=== PATIENT | male | born 1965 | race Caucasian/White ===

== ENCOUNTER → 2019-03-04 | Outpatient (CLI) | payer OTHER, SELFPAY ==
[2018-10-11 08:58] VITALS: BMI 35.9
[2019-03-04 08:22] LABS: ALB/GLOB Ratio 1.1 RATIO (0.9-2.4); AST(SGOT) 23 U/L (15-37); Alanine Aminotransfer ALT/SGPT 40 U/L (16-61); Albumin, Serum 3.7 g/dL (3.2-5.0); Alkaline Phosphatase 97 U/L (45-117); Anion Gap 7 (5-15); BUN 20 mg/dL (7-18); BUN/Creat Ratio 16.7 RATIO (10-20); Calcium,Total 8.4 mg/dL (8.5-10.1); Chloride 107 mmol/L (98-107); Cholesterol 213 mg/dL (200); EST Glomerular Filtration Rate 67 mL/min (>60); Est Glom Filt Rate - Afr Amer 81 mL/min (>60); Globulin 3.5 g/dL (2.2-4.2); Glucose 97 mg/dL (74-106); High Density Lipoprotein 39 mg/dL; PSA,Total - Annual Screen 0.48 ng/mL (0.00-4.00); Potassium 3.9 mmol/L (3.5-5.1); Protein, Total 7.2 g/dL (6.4-8.2); Sodium Level 141 mmol/L (136-145); Triglycerides 321 mg/dL; Very Low Density Lipoprotein 64 mg/dL (5-40)
== END | disposition home or self-care (01) ==
PROVIDERS: Family Provider Family Medicine; PCP Family Medicine; Referring Provider Family Medicine; Visit Provider Family Medicine
DX: Z13.1 Encounter for screening for diabetes mellitus (principal); Z12.5 Encounter for screening for malignant neoplasm of prostate; Z13.220 Encounter for screening for lipoid disorders
CPT/HCPCS: 36415; 80053; 80061; 84153; G0103

== ENCOUNTER 2019-05-14 08:32 | Day surgery (SDC) | payer OTHER, SELFPAY ==
[2018-10-11 08:58] VITALS: BMI 35.9
[2019-05-14 08:53] VITALS: BP 122/76; PULSE 69; RESP 16; TEMP 36.5; O2SAT 99; BMI 35.7
--- NOTE | 2019-05-14 09:45 | COLBX_PTH ---
PATIENT: LYNDA GUTIERREZ LOC: EN U#:[id number] AGE/SX: 53/M ROOM: RE05/14/[address]: Dr. Gustabo Hughes MD : 1965 BED: DIS: 05/14/2019 SPEC #: [id number] RECD: 05/14/19 11:13 STATUS: LAVERNE NEYMAR #: [id number] RENY: 05/14/19 09:[address]: Gustabo Hughes DEPT: SURGICAL PATHOLOGY RECD BY: Hugh Mcnally ENTERED: 05/14/19 14:23 SP TYPE: COLON BX OTHR DR: Dr. Tate Garcia MD Tissues: Sigmoid colon biopsy Procedures: Surgery Specimen Level IV HEADER OPERATION: Colonoscopy - open access (MAC) PRE-OP DIAGNOSIS: Screening TISSUE SUBMITTED: Sigmoid colon polyp MICROSCOPIC DIAGNOSIS Sigmoid colon polyp, biopsy: Tubular adenoma. AM:stephanie 05/15/19 MICROSCOPIC DESCRIPTION Slides are reviewed. GROSS DESCRIPTION Received in fixative is one container labeled with the patient's name and designated sigmoid colon polyp. The specimen consists of a bates-pink polyp measuring 0.8 x 0.6 x 0.3 cm. The specimen is totally submitted in one cassette. / SJ:stephanie 05/14/19 TC:5 CPT: 20424
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
[2019-05-14 10:21] VITALS: BP 108/75; BP 122/76; PULSE 48; RESP 16; TEMP 36.3; O2SAT 97
[2019-05-14 10:25] VITALS: BP 110/75; BP 122/76; PULSE 48; RESP 16; O2SAT 94
--- NOTE | 2019-05-14 10:25 | OP.ENDO_ITS ---
05/14/2019 Tate Garcia Re : Colonoscopy procedure for Tristin Garcia This procedure was performed on Tuesday, May 14, 2019. My impressions and recommendations are as follows: Impressions : - One polyp in the sigmoid colon, removed with a hot snare. Resected and retrieved. - The examination was otherwise normal on direct and retroflexion views. Recommendations : - Discharge patient to home. - Resume previous diet. - Continue present medications. - Physician's office will call you with pathology results and recommendations for when to repeat colonoscopy. - Repeat colonoscopy date to be determined after pending pathology results are reviewed for surveillance. My findings are described in the full procedure note, which is enclosed. If I can be of further assistance, please feel free to contact me at Doctor phone number(s): , Work: . Sincerely, Gustabo Hughes MD 05/14/2019 10:24:52 AM This report has been signed electronically.
[2019-05-14 10:30] VITALS: BP 113/80; BP 122/76; PULSE 50; RESP 16; O2SAT 95
[2019-05-14 10:35] VITALS: BP 122/76; BP 126/95; PULSE 47; RESP 16; TEMP 36.1; O2SAT 98
[2019-05-14 10:56] VITALS: BP 122/76
== END 2019-05-14 11:06 | disposition home or self-care (01) ==
LOC: EN 08:32 → AC 08:36
PROVIDERS: Family Provider Family Medicine; PCP Family Medicine; Referring Provider Family Medicine; Visit Provider Surgery
PROC: 0DJD8ZZ Inspection of Lower Intestinal Tract, Via Natural or Artificial Opening Endoscopic (ICD-10-PCS; CPT 45378; principal; 2019-05-14 09:40)
DX: Z12.11 Encounter for screening for malignant neoplasm of colon (principal); D12.5 Benign neoplasm of sigmoid colon; Z80.0 Family history of malignant neoplasm of digestive organs; F17.220 Nicotine dependence, chewing tobacco, uncomplicated
CPT/HCPCS: 45380; 88305; J7120

== ENCOUNTER 2020-06-06 10:51 | Emergency (ER) | payer OTHER, SELFPAY ==
[2020-06-06 10:38] VITALS: BMI 35.7
[2020-06-06 10:52] VITALS: BP 158/89; PULSE 74; RESP 16; TEMP 36.4; O2SAT 97; BMI 34.2
[2020-06-06] MEDS: Diphth,Pertuss(Acell),Tet Vac 0.5 ML Vial IM (11:13)
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
[2020-06-06 11:58] VITALS: BP 155/93; PULSE 62; RESP 17; O2SAT 97
--- NOTE | 2020-06-06 12:00 | ED.RN ---
DISCHARGE INSTRUCTIONS GIVEN TO AND REVIEWED WITH PATIENT, PATIENT DENIES QUESTIONS OR CONCERNS AND VOICES UNDERSTANDING OF DISCHARGE INSTRUCTIONS. PT AMBULATES OUT OF ROOM WITHOUT DIFFICULTY.
== END 2020-06-06 12:01 | disposition home or self-care (01) ==
LOC: ED 11:58
PROVIDERS: Emergency Provider Emergency Medicine; PCP Family Medicine
DX: S01.312A Laceration without foreign body of left ear, initial encounter (principal); F17.200 Nicotine dependence, unspecified, uncomplicated; X58.XXXA Exposure to other specified factors, initial encounter
CPT/HCPCS: 12011; 90471; 90715; 99283

== ENCOUNTER 2021-06-24 22:10 | Inpatient (IN) | payer BC, SELFPAY ==
[2021-06-24 22:11] VITALS: BP 140/72; PULSE 83; RESP 18; TEMP 37.8; O2SAT 97; BMI 35.2
--- NOTE | 2021-06-24 22:16 | RAD_ITS ---
STUDY: X-RAY CHEST REASON FOR EXAM: Male, 55 years old. sob TECHNIQUE: PA and lateral views of the chest. COMPARISON: None. FINDINGS: Patchy airspace disease throughout the lungs compatible with COVID. No consolidation or effusion. There is no demonstrated pleural abnormality. Normal size heart. Normal mediastinum and yogi. Normal visualized pulmonary arteries. Normal visualized aortic arch and descending thoracic aorta. Normal visualized thoracic spine. Normal visualized ribs, clavicles, and shoulders. There is no demonstrated abnormality of the visualized soft tissue structures of the upper abdomen. RAD/Chest PA and Lateral IMPRESSION: Findings as above compatible with COVID Electronically Signed: Michele Mendiola DO at 22:31 EDT Tel , Service support ,
[2021-06-24 23:14] VITALS: BP 140/72; PULSE 83; RESP 18; TEMP 37.8; O2SAT 97
[2021-06-24 23:16] VITALS: O2SAT 97
--- NOTE | 2021-06-24 23:25 | EKG12_ITS ---
Test Reason : SOB Blood Pressure : / mmHG Vent. Rate : 062 BPM Atrial Rate : 062 BPM P-R Int : 152 ms QRS Dur : 096 ms QT Int : 402 ms P-R-T Axes : 044 -13 039 degrees QTc Int : 408 ms Normal sinus rhythm Normal ECG Confirmed by CHAPO MOYA MD ([id number]), editor greeting card JOHN ELDRIDGE ([id number]) on 06/28/2021 1:07:05 PM Referred By: BB Confirmed By:CHAPO MOYA MD
[2021-06-24 23:26] VITALS: O2SAT 88
--- NOTE | 2021-06-24 23:28 | ED.VIS.DYS ---
HPI History of Present Illness Chief Complaint: Shortness of Breath Informant: patient and spouse/S.O. Narrative Narrative: Patient started having sinus congestion at the end of the week last week, about 6 days ago, was prescribed a Z-Jose E over the phone by nurse practitioner because of a history of sinus infections in the past. About 2 or 3 days ago he started having fevers, chills, body aches, minimal coughing, tonight feeling short of breath on occasion, malaise, fevers and chills, so brought in. No known contact with Covid but they were in with a lot of people recently in a /calling hours. Patient is healthy with no known medical problems. He denies any chest discomfort, diarrhea, abdominal pain. PFSH [facility] Medical History Arthritis Chewing tobacco use Segmental and somatic dysfunction of lumbar region Segmental and somatic dysfunction of pelvic region Segmental and somatic dysfunction of thoracic region Home Medications azithromycin 250 mg PO BID 06/24/21 [History Last Taken 06/24/21] Allergy/AdvReac Type Severity Reaction Status Date / Time No Known Allergies Allergy Verified 06/24/21 22:14 Surgical History S/P hernia repair S/P knee surgery Social History (Updated 06/25/21 @ 01:08 by Patricia Nguyen [employer]) Smoking Status: Never smoker Smokeless tobacco user: chewing tobacco alcohol intake: current alcohol intake frequency: a few times a week Alcohol type: beer and wine substance use type: does not use what type of physical activity do you participate in: walking frequency: 1-2 times per week ROS ROS ED Constitutional Constitutional ED: Reports body ache(s), chills, fatigue and fever(s) Eyes Eyes: Denies change in vision or diplopia ENT ENT ED: Reports headache(s) and nasal congestion; Denies rhinorrhea or sore throat Cardiovascular Cardiovascular: Denies chest pain or palpitations Respiratory/Chest Respiratory/Chest: Reports cough and dyspnea Gastrointestinal Gastrointestinal: Denies abdominal pain, diarrhea, nausea or vomiting Genitourinary Genitourinary ED: Denies dysuria or hematuria Musculoskeletal Musculoskeletal: Reports myalgias; Denies back pain or neck pain Integumentary Denies abscess or rash Neurologic Neurologic: Reports headache(s); Denies paresthesias or weakness Psychiatric Psychiatric: Denies anxiety or suicidal thoughts EXAM Physical Exam Const Vital Signs: 06/24/21 22:11 06/24/21 23:14 06/24/21 23:16 Temperature 100.1 F H 100.1 F H Temperature Source Temporal Temporal Pulse Rate 83 83 Respiratory Rate 18 18 Respiratory Effort Normal Non-Labored Respiratory Depth Normal Respiratory Pattern Normal Blood Pressure 140/72 H 140/72 H Blood Pressure Mean 94 94 Pulse Ox 97 97 Oxygen Delivery Method Room Air Room Air Room Air Oxygen Flow Rate (L/min) 06/24/21 23:43 06/25/21 00:00 06/25/21 00:11 Temperature 100.2 F H Temperature Source Temporal Pulse Rate 84 Respiratory Rate 15 Respiratory Effort Respiratory Depth Respiratory Pattern Blood Pressure 138/68 H Blood Pressure Mean 91 Pulse Ox 95 93 93 Oxygen Delivery Method Nasal Cannula Nasal Cannula Oxygen Flow Rate (L/min) 2 2 Positive well nourished and well developed Constitutional Narrative: Appears malaised, no distress. No respiratory distress. General Appearance ED: well developed and NAD HEENT Reports moist mucous membranes normocephalic and atraumatic Eyes PERRL and EOMs intact bilaterally Neck full ROM and supple Resp normal respiratory effort and clear to auscultation bilaterally Cardio regular rate, regular rhythm and no murmurs GI non-tender and non-distended Auscultation: normoactive bowel sounds Palpation: soft Back/Spine no CVA tenderness General Back: other FROM Extremity normal to inspection General Extremety ED: Negative for edema, pulses abnormal or tenderness General Extremity: Negative for edema or pulses abnormal Neuro oriented x3, CN's II-XII intact bilaterally and no sensory deficits noted Sensorium / Orientation: awake and alert Motor Exam: strength 5/5 throughout Skin no rashes or lesions noted and no wounds MDM MDM MDM Narrative Medical decision making narrative: During exam, patient mostly with pulse ox 90-95% on room air. He sat at 88% for around 30 seconds. states he probably has undiagnosed sleep apnea, as he often snores during sleep and wakes up suddenly after apneic. She states that at home prior to arrival, without pulse oximetry, he was feeling very poorly and a little dyspneic and had some perioral cyanotic appearance. This is a prompted her to bring him in. Given that this gentleman may be less than 1 week into this illness, has significant findings of Covid with a positive Covid test here tonight and bilateral patchy infiltrates that are already fairly significant, along with a pulse ox at 88% on room air, and went down as low as 85% according to the for period of time, I think you will benefit from admission and further treatment for moderate Covid pneumonia. Lab Data Attestation: I reviewed the patient's lab results. Labs: Laboratory Results - last 24 hr 06/24/21 06/24/21 06/24/21 23:40 23:40 23:40 WBC 3.8 L RBC 4.78 Hgb 15.0 Hct 44.3 MCV 92.7 MCH 31.4 MCHC 33.9 RDW Std Deviation 42.5 RDW Coeff of Lee 12.4 Plt Count 148 L MPV 10.3 Immature Gran % (Auto) 0.500 Neut % (Auto) 76.6 H Lymph % (Auto) 17.6 L Zavala % (Auto) 5.0 Eos % (Auto) 0.0 Baso % (Auto) 0.3 Absolute Neuts (auto) 2.9 Absolute Lymphs (auto) 0.67 L Nucleated RBC % 0 Sodium 135 L Potassium 3.8 Chloride 103 Carbon Dioxide 25.0 Anion Gap 7 BUN 14 Creatinine 1.08 Estim Creat Clear Calc 78.86 Est GFR (MDRD) Af Amer 91 Est GFR (MDRD) Non-Af 75 BUN/Creatinine Ratio 13.0 Glucose 113 H Lactic Acid Calcium 8.3 L Total Bilirubin 0.70 AST 46 H ALT 51 Alkaline Phosphatase 89 Troponin I High Sens 61 Total Protein 8.0 Albumin 3.7 Globulin 4.3 H Albumin/Globulin Ratio 0.9 Procalcitonin 0.08 06/24/21 23:40 WBC RBC Hgb Hct MCV MCH MCHC RDW Std Deviation RDW Coeff of Lee Plt Count MPV Immature Gran % (Auto) Neut % (Auto) Lymph % (Auto) Zavala % (Auto) Eos % (Auto) Baso % (Auto) Absolute Neuts (auto) Absolute Lymphs (auto) Nucleated RBC % Sodium Potassium Chloride Carbon Dioxide Anion Gap BUN Creatinine Estim Creat Clear Calc Est GFR (MDRD) Af Amer Est GFR (MDRD) Non-Af BUN/Creatinine Ratio Glucose Lactic Acid 0.8 Calcium Total Bilirubin AST ALT Alkaline Phosphatase Troponin I High Sens Total Protein Albumin Globulin Albumin/Globulin Ratio Procalcitonin Radiography Chest X-Ray - ED: 1 View, Read by ED Physician, Right Infiltrate and Left Infiltrate Diagnostic Testing: Radiology Impression Chest X-Ray 06/24/21 22:16 IMPRESSION: Findings as above compatible with COVID Electronically Signed: Michele Mendiola DO at 22:31 EDT Tel , Service support , EKG Initial EKG: Attestation: I personally reviewed and interpreted this EKG as follows: Interpretation: Sinus Rhythm and No Acute Injury Pattern Comments: Normal EKG Discharge Plan Dx/Rx/DC Orders Clinical Impression: Pneumonia due to COVID-19 virus, Hypoxemia Disposition Disposition: Acute Care Hospital [facility] Discharge Date/Time: 06/25/21 01:39
[2021-06-24 23:43] VITALS: O2SAT 95
[2021-06-24 23:47] LABS: Absolute Lymphocyte Count 0.67 X10^3/uL (0.83-4.51); Absolute Neutrophil Count 2.9 X10^3/uL (2.0-7.7); Basophil# 0.01 X10^3/uL; Basophil% 0.3 % (0-1); Hematocrit 44.3 % (40-54); Lymphocyte # 0.67 X10^3/ul (0.83-4.51); Lymphocyte % 17.6 % (19-41); Mean Corp Hgb Conc 33.9 g/dL (32-36); Mean Corpuscular Hgb 31.4 pg (27.0-32.0); Mean Corpuscular Volume 92.7 fL (80-94); Mean Platelet Vol. 10.3 fl (6.2-12.0); Monocyte# 0.19 X10^3/uL; NRBC Flagged by Analyzer 0 % (0-5); Neutrophil # 2.91 X10^3/uL (2.7-7.7); Neutrophil % 76.6 % (47-70); Platelet Count 148 K/mm3 (150-450); RBC Distribution Width CV 12.4 % (11.6-14.6); RBC Distribution Width SD 42.5 fl (35.1-43.9); Red Blood Count 4.78 M/mm3 (4.6-6.2); White Blood Count 3.8 K/mm3 (4.4-11.0)
[2021-06-25] VITALS (8 sets, daily range): BP systolic 120–156; BP diastolic 68–82; PULSE 55–84; RESP 15–18; TEMP 36.7–37.9; O2SAT 90–99; BMI 36.8
[2021-06-25 00:05] LABS: ALB/GLOB Ratio 0.9 RATIO (0.9-2.4); AST(SGOT) 46 U/L (15-37); Alanine Aminotransfer ALT/SGPT 51 U/L (16-61); Albumin, Serum 3.7 g/dL (3.2-5.0); Alkaline Phosphatase 89 U/L (45-117); Anion Gap 7 (5-15); BUN 14 mg/dL (7-18); Calcium,Total 8.3 mg/dL (8.5-10.1); Chloride 103 mmol/L (98-107); Creatinine, Serum 1.08 mg/dL (0.70-1.30); EST Glomerular Filtration Rate 75 mL/min (>60); Est Glom Filt Rate - Afr Amer 91 mL/min (>60); Estimated Creatinine Clearance 78.86 ml/min; Globulin 4.3 g/dL (2.2-4.2); Glucose 113 mg/dL (74-106); Potassium 3.8 mmol/L (3.5-5.1); Sodium Level 135 mmol/L (136-145); Troponin-I HS 61 pg/mL (3.0-78.0)
[2021-06-25 00:12] LABS: Lactic Acid 0.8 mmol/L (0.4-1.9)
[2021-06-25 00:16] LABS: Procalcitonin 0.08 ng/mL (0.00-0.09)
[2021-06-25] MEDS: dexAMETHasone 10 MG/ML Vial 6 MG IV ×2 (00:21→09:35)
[2021-06-25] MEDS: Acetaminophen 500 MG Tablet 1000 MG PO (00:21)
--- NOTE | 2021-06-25 01:05 | HP.PCM_ITS ---
Documented by User: Patricia Nguyen NP-C 06/25/21 01:14 HPI - General General Date of Admission: 06/25/21 Date of Service: 06/25/21 Chief Complaint: Shortness of breath HPI Narrative LYNDA GUTIERREZ, is a 55 M who presents with complaints of shortness of breath. Patient states that he has been having sinus congestion for the past week and did a telehealth visit for which he received a Z-Jose E. Approximately 3 days ago he began to have fevers, chills, body aches. Today he began to feel lethargic and short of breath more so with exertion. Patient denies known contact with Covid patient however he has been in multiple large groups over the past week for funerals and calling hours. Patient denies any medical history. Patient denies chest pain, nausea, vomiting, abdominal pain, diarrhea, constipation. [facility] Medical History Arthritis Segmental and somatic dysfunction of lumbar region Segmental and somatic dysfunction of pelvic region Segmental and somatic dysfunction of thoracic region Home Medications azithromycin 250 mg PO BID 06/24/21 [History Last Taken Unknown] Allergy/AdvReac Type Severity Reaction Status Date / Time No Known Allergies Allergy Verified 06/24/21 22:14 Surgical History S/P hernia repair S/P knee surgery Social History (Updated 06/25/21 @ 01:08 by Patricia Nguyen NP-C) Smoking Status: Never smoker Smokeless tobacco user: chewing tobacco alcohol intake: current alcohol intake frequency: a few times a week Alcohol type: beer and wine substance use type: does not use what type of physical activity do you participate in: walking frequency: 1-2 times per week ROS Constitutional Constitutional: Reports chills, fever(s) and malaise; Denies anorexia or weakne ss Cardiovascular Cardiovascular: Denies chest pain, edema or palpitations Respiratory/Chest Respiratory/Chest: Reports shortness of breath at rest and shortness of breath with exertion; Denies cough or wheezing Gastrointestinal Gastrointestinal: Denies abdominal pain, constipation, diarrhea, nausea or vomiting Genitourinary Genitourinary: Denies dysuria Musculoskeletal Musculoskeletal: Reports joint pain Integumentary Integumentary: Denies dry skin Neurologic Neurologic: Denies abnormal gait, abnormal speech, confusion, dizziness or focal weakness Psychiatric Psychiatric: Denies anxiety or depression Endocrine Endocrinology: Denies change in body appearance Hematologic/Lymphatic Hematologic/Lymphatic: Denies easy bleeding or easy bruising Vital Signs Vital Signs Vital Signs: 06/24/21 22:11 06/24/21 23:14 06/24/21 23:16 Temperature 100.1 F H 100.1 F H Temperature Source Temporal Temporal Pulse Rate 83 83 Respiratory Rate 18 18 Respiratory Effort Normal Non-Labored Respiratory Depth Normal Respiratory Pattern Normal Blood Pressure 140/72 H 140/72 H Blood Pressure Mean 94 94 Pulse Ox 97 97 Oxygen Delivery Method Room Air Room Air Room Air Oxygen Flow Rate (L/min) 06/24/21 23:43 06/25/21 00:00 06/25/21 00:11 Temperature 100.2 F H Temperature Source Temporal Pulse Rate 84 Respiratory Rate 15 Respiratory Effort Respiratory Depth Respiratory Pattern Blood Pressure 138/68 H Blood Pressure Mean 91 Pulse Ox 95 93 93 Oxygen Delivery Method Nasal Cannula Nasal Cannula Oxygen Flow Rate (L/min) 2 2 Weight Weight: 245 lb Body Mass Index (BMI) 35.2 Physical Exam Const alert and oriented x3 General Appearance: cooperative HEENT normocephalic and head/scalp atraumatic Eyes conjunctivae normal and no scleral icterus Neck supple and no JVD General: trachea midline Resp normal respiratory effort and normal air movement Auscultation: wheezes scattered wheezes Cardio regular rate, regular rhythm, S1 normal heart sound, S2 normal heart sound and peripheral pulses 2+ throughout GI normal to inspection, nondistended, normoactive bowel sounds, soft to palpation and non-tender Extremity normal capillary refill and no clubbing, cyanosis or edema General Extremity: no tenderness to palpation of joints or extremities Skin General Skin Exam: no breakdown and turgor normal Lesions: no lesions Rashes: no rashes Neuro no focal motor deficits and no sensory deficits noted Speech: speech normal Motor Exam: Negative for general weakness Psych thought process normal, cooperative and affect normal Appearance: appropriate Results Lab / Micro Data Result Diagrams: 06/24/21 23:40 06/24/21 23:40 Labs: Laboratory Results - last 24 hr 06/24/21 23:40: Procalcitonin 0.08 06/24/21 23:40: WBC 3.8 L, RBC 4.78, Hgb 15.0, Hct 44.3, MCV 92.7, MCH 31.4, MCHC 33.9, RDW Std Deviation 42.5, RDW Coeff of Lee 12.4, Plt Count 148 L, MPV 10.3, Immature Gran % (Auto) 0.500, Neut % (Auto) 76.6 H, Lymph % (Auto) 17.6 L, [place] % (Auto) 5.0, Eos % (Auto) 0.0, Baso % (Auto) 0.3, Absolute Neuts (auto) 2.9, Absolute Lymphs (auto) 0.67 L, Nucleated RBC % 0 06/24/21 23:40: Sodium 135 L, Potassium 3.8, Chloride 103, Carbon Dioxide 25.0, Anion Gap 7, BUN 14, Creatinine 1.08, Estim Creat Clear Calc 78.86, Est GFR (MDRD) Af Amer 91, Est GFR (MDRD) Non-Af 75, BUN/Creatinine Ratio 13.0, Glucose 113 H, Calcium 8.3 L, Total Bilirubin 0.70, AST 46 H, ALT 51, Alkaline Phosphatase 89, Troponin I High Sens 61, Total Protein 8.0, Albumin 3.7, Globulin 4.3 H, Albumin/Globulin Ratio 0.9 06/24/21 23:40: Lactic Acid 0.8 Micro: Microbiology 06/24/21 22:37 Mucosa - Nose SARS-CoV-2 Antigen (Rapid) - Final SARS-CoV-2 (COVID 19) Radiology Impression Chest X-Ray 06/24/21 22:16 IMPRESSION: Findings as above compatible with COVID Electronically Signed: Michele Mendiola DO at 22:31 EDT Tel , Service support , Assessment & Plan Assessment/Plan (1) Pneumonia due to COVID-19 virus: PLAN: 1. Pneumonia due to COVID-19 virus -Admit to MedSurg -Continue IV Decadron -IV remdesivir ordered -Oxygen per protocol, patient currently on 2 L, patient does not wear at baseline. -Encourage incentive spirometry -Consult infectious disease -We will obtain CPK, CRP, D-dimer -CBC and CMP ordered for a.m. -As needed albuterol aerosol nebulizer treatments ordered -Covid precautions ordered -Encourage fluid intake 2. Leukopenia -Likely secondary to #1 -Daily CBC ordered, will trend DVT prophylaxis-subcu Lovenox This patient was seen by RAMIRO Box under the supervision of Dr. Alonzo. Documented by User: Dr. Freedom Alonzo MD 06/25/21 01:48 HPI - General General Date of Admission: 06/25/21 [facility] Medical History Arthritis Segmental and somatic dysfunction of lumbar region Segmental and somatic dysfunction of pelvic region Segmental and somatic dysfunction of thoracic region Home Medications azithromycin 250 mg PO BID 06/24/21 [History Last Taken Unknown] Allergy/AdvReac Type Severity Reaction Status Date / Time No Known Allergies Allergy Verified 06/24/21 22:14 Surgical History S/P hernia repair S/P knee surgery Social History (Updated 06/25/21 @ 01:08 by Patricia Nguyen NP-Devora) Smoking Status: Never smoker Smokeless tobacco user: chewing tobacco alcohol intake: current alcohol intake frequency: a few times a week Alcohol type: beer and wine substance use type: does not use what type of physical activity do you participate in: walking frequency: 1-2 times per week Results Lab / Micro Data Result Diagrams: 06/24/21 23:40 06/24/21 23:40 Charges/Coding Addendum Addendum: Patient was seen and examined independently. I agree with assessment and plan by RAMIRO Box In summary patient is a 55-year-old male with previously no medical history who presents to the emergency department with 2-day history of progressively worsening shortness of breath on exertion. Associated with symptoms is fever; body aches and chills. Also he has had some occasional productive cough. He denies any loss in taste or smell sensation. He has not received the vaccination for COVID-19. In spring 2020 he has symptoms that he thought was compatible with COVID-19. However he never got tested at that time. Physical exam: General: Well-nourished, well-developed, no acute distress Head: Normocephalic, atraumatic, no tenderness Eyes: PERRLA, EOMI ENT, no trauma, moist mucous membranes, no rhinorrhea Neck: Nontender, full range of motion, no spinal tenderness, deformities, step- off CVS: Regular rate and rhythm Respiratory no acute distress, clear to auscultation bilaterally, chest wall nontender, no wheezing Abdomen: Soft, nontender, nondistended, normal bowel sounds, no masses : Deferred Back: Nontender, no CVA tenderness, no midline spinal tenderness, deformities, step-offs Extremities: Nontender full range of motion, no trauma Skin: Normal color, no trauma, abrasions Neuro: Alert, oriented, cranial nerves II through XII grossly intact. Psychiatry: Normal mood. Normal affect. Not depressed. Not anxious. Acute hypoxemic respiratory insufficiency secondary to SARS- COV 2 Patient requires supplemental oxygenation at the emergency department. Oxygen supplementation continued to keep oxygen saturation to at least 92%. Review of emergency department labs showed positive COVID-19 antigen. Review of emergency department labs showed unremarkable procalcitonin. Chest x-ray image interpreted by radiologist and myself is compatible with COVID-19 infection. Received Decadron IV at emergent department and continued. Review of Emergency Department labs showed appropriate creatinine clearance. Liver biochemistry is normal. Patient will be started on remdesivir. CBC with leukopenia; neutrophilia and lymphopenia consistent with COVID-19. Will trend CBC and CMP. Tylenol for fever Albuterol as needed Visit Charges Inpatient E&M: 27979 Init Hosp L3
[2021-06-25 02:38] LABS: Absolute Lymphocyte Count 0.69 X10^3/uL (0.83-4.51); Absolute Neutrophil Count 3.3 X10^3/uL (2.0-7.7); Basophil# 0.01 X10^3/uL; Basophil% 0.2 % (0-1); Hematocrit 43.9 % (40-54); Hemoglobin 14.9 g/dL (13.0-16.5); Lymphocyte # 0.69 X10^3/ul (0.83-4.51); Lymphocyte % 16.8 % (19-41); Mean Corp Hgb Conc 33.9 g/dL (32-36); Mean Corpuscular Hgb 31.9 pg (27.0-32.0); Mean Platelet Vol. 10.4 fl (6.2-12.0); Monocyte% 2.4 % (0-10); NRBC Flagged by Analyzer 0 % (0-5); Neutrophil # 3.28 X10^3/uL (2.7-7.7); Neutrophil % 80.1 % (47-70); Platelet Count 129 K/mm3 (150-450); RBC Distribution Width CV 12.6 % (11.6-14.6); RBC Distribution Width SD 43.8 fl (35.1-43.9); Red Blood Count 4.67 M/mm3 (4.6-6.2); White Blood Count 4.1 K/mm3 (4.4-11.0)
[2021-06-25 02:47] LABS: D-Dimer Quantitative (DVT/PE) 0.45 FEU/ug/m (0.27-0.49)
[2021-06-25 02:55] LABS: ALB/GLOB Ratio 0.9 RATIO (0.9-2.4); AST(SGOT) 46 U/L (15-37); Alanine Aminotransfer ALT/SGPT 51 U/L (16-61); Albumin, Serum 3.6 g/dL (3.2-5.0); Alkaline Phosphatase 88 U/L (45-117); Anion Gap 7 (5-15); BUN 15 mg/dL (7-18); BUN/Creat Ratio 14.6 RATIO (10-20); Calcium,Total 8.4 mg/dL (8.5-10.1); Chloride 103 mmol/L (98-107); Creatinine, Serum 1.03 mg/dL (0.70-1.30); EST Glomerular Filtration Rate 79 mL/min (>60); Est Glom Filt Rate - Afr Amer 96 mL/min (>60); Estimated Creatinine Clearance 82.69 ml/min; Globulin 3.9 g/dL (2.2-4.2); Glucose 125 mg/dL (74-106); Potassium 3.9 mmol/L (3.5-5.1); Protein, Total 7.5 g/dL (6.4-8.2); Sodium Level 135 mmol/L (136-145)
[2021-06-25 02:57] LABS: CPK Total, Creatine Kinase 305 U/L (39-308)
--- NOTE | 2021-06-25 03:03 | NURSING ---
Pandemic documentation initiated 06/25/21 @ 0798
[2021-06-25] MEDS: Enoxaparin 30 MG/0.3 ML Syringe SC (09:37)
[2021-06-25] MEDS: 0.9% Saline Lock 10 ML Syringe IV (09:37)
--- NOTE | 2021-06-25 11:53 | DCINST_ITS ---
Discharge Instructions Diet Discharge Diet: No restrictions Activity Discharge Activity: Return to Normal Activity Weight Bearing Status: Weight bearing as tolerated Follow Up Care Test Results: Test results from this visit will be discussed in further detail at your follow-up appointment, if applicable. Discharge Plan Admission Admit Date/Time: 06/25/21 01:03 Primary Reason for Your Visit: Acute COVID-19 pneumonia Attending Provider: Janet Lopez Primary Care Provider: Tate Garcia Consulting Providers: Francisco Almaraz Instructions Additional Instructions / Restrictions: Continue to use your incentive spirometer. Continue to remain active and eat healthy. Complete your Decadron as prescribed. Continue to use your inhaler as needed for shortness of breath. Continue to quarantine for 20 days total from the start of your symptoms. Let your doctor know if you develop fever >101.3F or have progressive worsening shortness of breath. Follow-up with your primary care doctor Discharge Orders/Prescriptions Prescriptions: New albuterol sulfate 90 mcg/actuation Hfa Aerosol Inhaler 2 puff inhalation Q4H PRN PRN (Reason: sob/wheezing) 30 Days Qty: 1 RF: 0 dexamethasone 6 mg tablet 6 mg PO DAILY Qty: 8 RF: 0 aspirin [Aspirin Low Dose] 81 mg tablet,delayed release (DR/EC) 81 mg PO DAILY Qty: 30 RF: 0 Discontinued azithromycin 250 mg tablet 250 mg PO BID RF: 0 Referrals / Follow Up: Tate Garcia MD [Primary Care Provider] - See Referral Note (after your quarantine) Disposition Disposition (needs filled in before D/C Order can be placed): Home, Self Care
--- NOTE | 2021-06-25 11:55 | PCM.DC.SUM ---
Providers Date of Admission: 06/25/21 Date of Discharge: 06/25/21 Primary Care Physician: Dr. Tate Garcia MD Consultations 06/25/21 01:54 Consult: Infectious Disease Routine Consulting Provider: Francisco Almaraz Reason for Consult: Covid-19 EMERGENT Consult: No Notified: Yes Date Notified: 06/25/21 Time Notified: 04:46 Method of Notification: Answering Service Reason For Visit: COVID19 PNA Diagnosis Discharge Diagnosis (1) Pneumonia due to COVID-19 virus: Status: Acute Code(s): U07.1 - COVID-19; J12.82 - Pneumonia due to coronavirus disease 2019 Medications at Discharge Home Medications albuterol sulfate 2 puff INHALATION Q4H PRN PRN 30 Days #1 inh 06/25/21 aspirin [Aspirin Low Dose] 81 mg PO DAILY #30 tab 06/25/21 dexamethasone 6 mg PO DAILY #8 tab 06/25/21 Hospital Course Operations None Procedures None Summary of Care Provided Minutes Spent on Discharge: 35 Hospital Course: 55-year-old male, with no significant past medical history, who is unvaccinated comes in with complaints of shortness of breath ongoing for about 1 week. His symptoms started as sinus congestion for which he did a telehealth visit and received a Z-Jose E. He presents fever, chills, cough, body aches that started 3 days prior to admission. Patient admits to not using his mask regularly. He recently been in large settings. He was hypoxic in the ED requiring 2 L of oxygen. He was admitted to the [facility] floor and started on remdesivir and dexamethasone. Patient was off oxygen and NC. He was ambulated and did not require oxygen. He was discharged to complete 20 days of quarantine as well as complete 10-day course of dexamethasone. He will follow-up with his primary care doctor after his quarantine Physical Exam Narrative Physical exam: General: Alert, Oriented x3, Cooperative, No apparent distress, Well developed HEENT: Atraumatic Oral: Moist Mucosa Neck: Supple Lungs: Diminished Cardiovascular: HS I+II, regular, no murmurs Abdomen: Bowel Sounds Present, Soft, Non Tender Extremities: No edema Skin: No rashes, No breakdown Neurological: Grossly intact Psych/Mental Status: Appropriate Weight / BMI Weight Weight: 116.6 kg Body Mass Index (BMI) 36.8 ABG / Lab / Microbiology Data Result Diagrams: 06/25/21 02:20 06/25/21 02:20 Laboratory: Laboratory Results - last 24 hr 06/24/21 23:40: Procalcitonin 0.08 06/24/21 23:40: WBC 3.8 L, RBC 4.78, Hgb 15.0, Hct 44.3, MCV 92.7, MCH 31.4, MCHC 33.9, RDW Std Deviation 42.5, RDW Coeff of Lee 12.4, Plt Count 148 L, MPV 10.3, Immature Gran % (Auto) 0.500, Neut % (Auto) 76.6 H, Lymph % (Auto) 17.6 L, [place] % (Auto) 5.0, Eos % (Auto) 0.0, Baso % (Auto) 0.3, Absolute Neuts (auto) 2.9, Absolute Lymphs (auto) 0.67 L, Nucleated RBC % 0 06/24/21 23:40: Sodium 135 L, Potassium 3.8, Chloride 103, Carbon Dioxide 25.0, Anion Gap 7, BUN 14, Creatinine 1.08, Estim Creat Clear Calc 78.86, Est GFR (MDRD) Af Amer 91, Est GFR (MDRD) Non-Af 75, BUN/Creatinine Ratio 13.0, Glucose 113 H, Calcium 8.3 L, Total Bilirubin 0.70, AST 46 H, ALT 51, Alkaline Phosphatase 89, Troponin I High Sens 61, Total Protein 8.0, Albumin 3.7, Globulin 4.3 H, Albumin/Globulin Ratio 0.9 06/24/21 23:40: Lactic Acid 0.8 06/25/21 02:20: D-Dimer Quant (PE/DVT) 0.45 06/25/21 02:20: Total Creatine Kinase 305, C-React Prot Ext Range 16.30 H 06/25/21 02:20: WBC 4.1 L, RBC 4.67, Hgb 14.9, Hct 43.9, MCV 94.0, MCH 31.9, MCHC 33.9, RDW Std Deviation 43.8, RDW Coeff of Lee 12.6, Plt Count 129 L, MPV 10.4, Immature Gran % (Auto) 0.500, Neut % (Auto) 80.1 H, Lymph % (Auto) 16.8 L, [place] % (Auto) 2.4, Eos % (Auto) 0.0, Baso % (Auto) 0.2, Absolute Neuts (auto) 3.3, Absolute Lymphs (auto) 0.69 L, Nucleated RBC % 0 06/25/21 02:20: Sodium 135 L, Potassium 3.9, Chloride 103, Carbon Dioxide 25.0, Anion Gap 7, BUN 15, Creatinine 1.03, Estim Creat Clear Calc 82.69, Est GFR (MDRD) Af Amer 96, Est GFR (MDRD) Non-Af 79, BUN/Creatinine Ratio 14.6, Glucose 125 H, Calcium 8.4 L, Total Bilirubin 0.80, AST 46 H, ALT 51, Alkaline Phosphatase 88, Total Protein 7.5, Albumin 3.6, Globulin 3.9, Albumin/Globulin Ratio 0.9 Microbiology: Microbiology 06/24/21 22:37 Mucosa - Nose SARS-CoV-2 Antigen (Rapid) - Final SARS-CoV-2 (COVID 19) Radiography Diagnostic Testing: Radiology Impression Chest X-Ray 06/24/21 22:16 IMPRESSION: Findings as above compatible with COVID Electronically Signed: Michele Mendiola DO at 22:31 EDT Tel , Service support , D/C Instructions Discharge Diet: No restrictions Weight Bearing Status: Weight bearing as tolerated Meaningful Use Info Meaningful Use Diagnoses (Choose all that apply): None applicable Discharge Plan Admission Admit Date/Time: 06/25/21 01:03 Primary Reason for Your Visit: Acute COVID-19 pneumonia Attending Provider: Janet Lopez Primary Care Provider: Tate Garcia Consulting Providers: Francisco Almaraz Instructions Additional Instructions / Restrictions: Continue to use your incentive spirometer. Continue to remain active and eat healthy. Complete your Decadron as prescribed. Continue to use your inhaler as needed for shortness of breath. Continue to quarantine for 20 days total from the start of your symptoms. Let your doctor know if you develop fever >101.3F or have progressive worsening shortness of breath. Follow-up with your primary care doctor Discharge Orders/Prescriptions Prescriptions: New albuterol sulfate 90 mcg/actuation Hfa Aerosol Inhaler 2 puff inhalation Q4H PRN PRN (Reason: sob/wheezing) 30 Days Qty: 1 RF: 0 dexamethasone 6 mg tablet 6 mg PO DAILY Qty: 8 RF: 0 aspirin [Aspirin Low Dose] 81 mg tablet,delayed release (DR/EC) 81 mg PO DAILY Qty: 30 RF: 0 Discontinued azithromycin 250 mg tablet 250 mg PO BID RF: 0 Referrals / Follow Up: Tate Garcia MD [Primary Care Provider] - See Referral Note (after your quarantine) Disposition Disposition (needs filled in before D/C Order can be placed): Home, Self Care Charges/Coding Visit Charges Inpatient E&M: 08779 Disch Hosp
--- NOTE | 2021-06-25 12:25 | CASEMGMT ---
ELYSSA COMER Assessment: Face to Face with pt for initial transition planning/care coordination assessment. RN SOULEYMANE introduced self and role at [facility], pt voices understanding and consents to assessment. Pt is A/O x4 and answers all questions appropriately at this time. Pt lying in bed in no distress on RA. Care providers, pharmacy, and demographics verified/updated. Admitting Dx: COVID PNA PCP:Tate Garcia Specialists: Pt denies having any specialists. Preferred Pharmacy: [facility] Insurance: [employer] Prescription Benefit: yes LW/HPOA: Pt denies. LNOK: Carolyn Oneal, Living Arrangements: Pt lives with in a two story house with 3 steps to enter. Pt reports being I in ADL's and denies concerns at home. Transportation: Pt drives self and denies concerns with transportation. DME/HHC/SNF: Pt denies having any DME, hx of HHC or SNF stays. Pt was tested for COVID at [facility]. He states he cannot effectively quarantine from his as they only have one bathroom. Discussed wearing of masks, proper handwashing, etc. They are able to sleep in separate bedrooms. Pt states he has family who can bring groceries and supplies. Discussed purchasing of pulse ox for home. 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 Pt did not qualify for home O2. Pt states no concerns with going home at time of dc. Pt states no further concerns/needs. CM to follow. Advised pt to ask CM if any further question/concerns/needs arise, voices understanding. Pt Goal: Home Plan: Home
--- NOTE | 2021-06-28 12:27 | CASEMGMT ---
Addendum entered by Therese Lopez 06/28/21 13:40: Pt returned call. He states he is doing very well. States he is quarantining and is out mowing, weedeating and mowing pastures. Pt denies feeling SOB. His picked up his rx prior to being dc'd. He has not yet made his follow up appt with his PCP, but will do so. Pt denied further questions/concerns. Original Note: ELYSSA COMER Discharge COVID Phone Call: LACE: 4 Strata:1 Call Date: 06/28/21 Discharge Date: 06/25/21 Time of Call:1225 Duration:<1 min Admitting Dx:COVID 19 PNA ELYSSA COMER attempted to complete follow up phone call after recent hospitalization for COVID 19. Received identified voicemail. Left a message regarding purpose of call and call back number.
== END 2021-06-25 13:29 | disposition home or self-care (01) | DRG 177 ==
LOC: ED 23:43 → MS3 06-25 01:17
PROVIDERS: Nurse Practitioner Family; Admitting Provider Hospitalist; Emergency Provider Emergency Medicine; PCP Family Medicine; Visit Provider Internal Medicine
DX: U07.1 COVID-19 (principal); J12.82 Pneumonia due to coronavirus disease 2019; F17.220 Nicotine dependence, chewing tobacco, uncomplicated; M19.90 Unspecified osteoarthritis, unspecified site; M99.03 Segmental and somatic dysfunction of lumbar region; M99.05 Segmental and somatic dysfunction of pelvic region; M99.02 Segmental and somatic dysfunction of thoracic region; R09.02 Hypoxemia
CPT/HCPCS: 36415; 71046; 80053; 82550; 83605; 84145; 84484; 85025; 85379; 86140; 87040; 87426; 93005; 94762; 99251; 99285; J7050; A4216; G0463

== ENCOUNTER 2021-07-01 04:47 | Inpatient (IN) | payer BC, SELFPAY ==
[2021-07-01] VITALS (17 sets, daily range): BP systolic 106–154; BP diastolic 57–89; PULSE 52–78; RESP 16–28; TEMP 36.4–37.1; O2SAT 90–96; BMI 38.2; BMI 36.0
--- NOTE | 2021-07-01 04:54 | RAD_ITS ---
HISTORY: Covid pneumonia, rales bilaterally EXAMINATION/TECHNIQUE: XR Chest 1 View: COMPARISON: June 24, 2021 FINDINGS: LINES/DEVICES: None. LUNGS: Bilateral mid to lower lung patchy airspace opacities. Unremarkable interstitium. No effusion. No pneumothorax. MEDIASTINUM: No cardiomegaly. MUSCULOSKELETAL: No acute osseous finding. RAD/Chest 1 View (Portable) IMPRESSION: Increased bilateral mid to lower lung patchy airspace opacities concerning for infection. Radiographic follow-up recommended to ensure resolution. at 0537 Reported and signed by: James Valdez MD Electronically Signed: James Valdez MD at 5:35 EDT Tel , Service support ,
--- NOTE | 2021-07-01 04:54 | EKG12_ITS ---
Test Reason : SOB Blood Pressure : / mmHG Vent. Rate : 064 BPM Atrial Rate : 064 BPM P-R Int : 140 ms QRS Dur : 090 ms QT Int : 398 ms P-R-T Axes : 033 -09 019 degrees QTc Int : 410 ms Normal sinus rhythm Voltage criteria for left ventricular hypertrophy Abnormal ECG Confirmed by EMMA BELLO, VICKI ([id number]), proposal editor JOHN ELDRIDGE ([id number]) on 07/05/2021 10:22:54 AM Referred By: SABINO Confirmed By:VICKI CARTER MD
--- NOTE | 2021-07-01 04:55 | EDS_ITS ---
HPI History of Present Illness Chief Complaint: Shortness of Breath Informant: patient and spouse/S.O. Onset/Context/Timing Onset: Days Context: gradual Timing: Continuous Quality: Positive for Dyspnea on exertion and Wheezing Current Severity: Moderate Maximum Severity: Severe Worsened by: Exertion and Coughing Relieved by: Nothing Associated Symptoms cough, rhinorrhea, post nasal drip, fever, chills and sweats; Negative for ear pain Chest Pain: Positive for None Narrative Narrative: Patient is a 55-year-old male who was admitted on June 24 for Covid pneumonia. He was hypoxic. He was treated for Covid pneumonia, remdesivir. He was discharged after 12 hours. He was discharged with an albuterol inhaler, aspirin and dexamethasone. According to the and patient he developed fever starting Monday. He has had increased shortness of breath and diaphoresis. He has had intermittent fever since Monday. He denies pleuritic pain. [place] leg pain, swelling discoloration. He denies nausea or vomiting. He does report mild headache. PE Risk Factors: Negative for Cancer, OCP + Smoking + > 35, Prior DVT or PE, Recent immobilization, Recent surgery and Recent travel Prior similar symptoms: Yes Recent Illness/Hospitalization: Yes PFSH PFSH Medical History (Updated 07/01/21 @ 05:[address] Dallas Garg MD) Arthritis Chewing tobacco use Segmental and somatic dysfunction of lumbar region Segmental and somatic dysfunction of pelvic region Segmental and somatic dysfunction of thoracic region Home Medications albuterol sulfate 2 puff INHALATION Q4H PRN PRN 30 Days #1 inh 06/25/21 [Rx Last Taken Unknown] aspirin [Aspirin Low Dose] 81 mg PO DAILY #30 tab 06/25/21 [Rx Last Taken Unknow n] dexamethasone 6 mg PO DAILY #8 tab 06/25/21 [Rx Last Taken Unknown] Allergy/AdvReac Type Severity Reaction Status Date / Time No Known Allergies Allergy Verified 07/01/21 04:52 Surgical History S/P hernia repair S/P knee surgery Social History (Updated 07/01/21 @ 04:[address] Dallas Garg MD) household members: spouse housing: house Smoking Status: Never smoker Smokeless tobacco user: chewing tobacco alcohol intake: current alcohol intake frequency: a few times a week Alcohol type: beer and wine substance use type: does not use what type of physical activity do you participate in: walking frequency: 1-2 times per week ROS ROS ED Constitutional Constitutional ED: Reports chills, fever(s) and sweats; Denies weight loss Eyes Eyes: Denies blurry vision, change in vision or diplopia ENT ENT ED: Reports rhinorrhea and sore throat; Denies ear pain Cardiovascular Cardiovascular: Reports palpitations; Denies chest pain, orthopnea, paroxysmal nocturnal dyspnea or racing heartbeat Respiratory/Chest Respiratory/Chest: Reports cough, dyspnea and dyspnea on exertion; Denies orthopnea, paroxysmal nocturnal dyspnea or sputum Gastrointestinal Gastrointestinal: Reports nausea; Denies abdominal pain, diarrhea or vomiting Genitourinary Genitourinary ED: Denies dysuria, hematuria or urinary frequency Musculoskeletal Musculoskeletal: Reports arthralgias and myalgias; Denies back pain or neck pain Integumentary Denies rash Neurologic Neurologic: Reports headache(s) and weakness Endocrine Endocrinology: Denies polydipsia, polyphagia or polyuria Hematologic/Lymphatic Hematologic/Lymphatic: Denies easy bleeding or easy bruising EXAM Physical Exam Const Vital Signs: 07/01/21 04:48 07/01/21 04:51 07/01/21 04:53 Temperature 97.6 F L 97.6 F L Temperature Source Temporal Temporal Pulse Rate 74 74 Respiratory Rate 28 H 28 H Respiratory Effort Short of Breath Respiratory Pattern Tachypnea Blood Pressure 132/82 H 132/82 H Blood Pressure Mean 98 98 Pulse Ox 90 90 Oxygen Delivery Method Room Air Room Air Room Air 07/01/21 05:12 Temperature Temperature Source Pulse Rate 61 Respiratory Rate 18 Respiratory Effort Respiratory Pattern Blood Pressure Blood Pressure Mean Pulse Ox Oxygen Delivery Method Positive well nourished, well developed and obese General Appearance ED: well developed and other Patient appears ill. He is diaphoretic. He is tachypneic. He desaturated to the mid 80s with walking. He he is 90% while lying on the examination cot. ; Negative for pallor Nutritional Appearance: obese HEENT Reports TM's clear and moist mucous membranes HEENT Narrative: Head is normocephalic atraumatic. Ears normal. Tympanic Membrane ED: Yes TM's clear Eyes PERRL and EOMs intact bilaterally General Eye ED: Negative for pale conjunctiva or scleral icterus Neck no lymphadenopathy, supple, no meningeal signs and no JVD Resp No normal respiratory effort and No clear to auscultation bilaterally Auscultation: rales bilateral mid and lower, wheezes expiratory wheezes and diminished lung sounds Cardio regular rate, regular rhythm, S1 normal heart sound, S2 normal heart sound and no murmurs GI non-tender, non-distended and no masses Auscultation: normoactive bowel sounds Palpation: soft Back/Spine no CVA tenderness and normal to inspection Extremity normal to inspection Extremity Narrative: There is no asymmetry, swelling, discoloration, leg vein distention, palpable cords or tenderness along the distribution of the deep venous system. General Extremety ED: Negative for edema or tenderness General Extremity: Negative for edema Neuro oriented x3, CN's II-XII intact bilaterally and no sensory deficits noted Sensorium / Orientation: alert Motor Exam: strength 5/5 throughout Psych mental status grossly normal Thought Process: normal thought process Skin no wounds General Skin Exam: Negative for jaundice or pallor Lesions: no lesions Rashes: no rashes MDM MDM MDM Narrative Medical decision making narrative: Patient is hypoxic due to Covid pneumonia. He is presently on dexamethasone. Since he does have some slight wheezing noted with expiration albuterol was ordered. Appropriate blood work was ordered. He will require admission to the hospital. Chest x-ray was obtained to determine if the infiltrates have gotten worse since his admission last week. EKG to rule out ischemic changes since he is middle-age. Case was discussed with Dr. Madelyn Gaona the hospitalist. Since patient is 2 weeks out from onset she is requesting antibiotics. Patient received 1 g of Rocephin and 500 mg of azithromycin. Lab work indicates no evidence of endorgan injury. Therefore, full admit [facility] [place] [place] Lab Data Labs: Laboratory Results - last 24 hr 07/01/21 07/01/21 05:00 05:00 WBC 10.4 RBC 4.65 Hgb 14.9 Hct 42.7 MCV 91.8 MCH 32.0 MCHC 34.9 RDW Std Deviation 41.6 RDW Coeff of Lee 12.5 Plt Count 272 MPV 9.8 Immature Gran % (Auto) 3.800 H Neut % (Auto) 77.7 H Lymph % (Auto) 12.5 L [place] % (Auto) 3.0 Eos % (Auto) 2.6 Baso % (Auto) 0.4 Absolute Neuts (auto) 8.1 H Absolute Lymphs (auto) 1.30 Nucleated RBC % 0 Sodium 136 Potassium 3.8 Chloride 104 Carbon Dioxide 26.0 Anion Gap 6 BUN 16 Creatinine 1.08 Estim Creat Clear Calc 78.86 Est GFR (MDRD) Af Amer 91 Est GFR (MDRD) Non-Af 75 BUN/Creatinine Ratio 14.8 Glucose 114 H Calcium 8.8 Total Bilirubin 1.20 H AST 32 ALT 74 H Alkaline Phosphatase 92 Total Protein 7.8 Albumin 3.2 Globulin 4.6 H Albumin/Globulin Ratio 0.7 L Radiography Chest X-Ray - ED: 1 View, Read by ED Physician ([id number]), Heart, Lungs (Bilateral multilobar interstitial infiltrates. The infiltrates are worse than prior chest x-ray dated June 24, 2021) and Bony Structures EKG Initial EKG: Attestation: I personally reviewed and interpreted this EKG as follows: Interpretation: Sinus Rhythm (Sinus rhythm ventricular 64. IN interval is 140 ms. QRS duration 90 ms. QT duration 398 ms. There is motion artifact. [place] is normal. There is evidence of LVH by voltage criteria.) Discharge Plan Dx/Rx/DC Orders Clinical Impression: Pneumonia due to 2019 novel coronavirus, Acute respiratory failure with hypoxia Disposition Disposition: Acute Care Hospital [facility]
[2021-07-01] MEDS: 0.9% Normal Saline 1,000 ML 150 ML IV (05:06)
[2021-07-01] MEDS: Albuterol 2.5 MG/3 ML VIAL.NEB. INHALATION ×3 (05:07)
[2021-07-01 05:09] LABS: Absolute Neutrophil Count 8.1 X10^3/uL (2.0-7.7); Basophil# 0.04 X10^3/uL; Basophil% 0.4 % (0-1); Eosinophil# 0.27 X10^3/uL; Eosinophils% 2.6 % (0-5); Hematocrit 42.7 % (40-54); Hemoglobin 14.9 g/dL (13.0-16.5); Lymphocyte % 12.5 % (19-41); Mean Corp Hgb Conc 34.9 g/dL (32-36); Mean Corpuscular Volume 91.8 fL (80-94); Mean Platelet Vol. 9.8 fl (6.2-12.0); Monocyte# 0.31 X10^3/uL; NRBC Flagged by Analyzer 0 % (0-5); Neutrophil # 8.07 X10^3/uL (2.7-7.7); Neutrophil % 77.7 % (47-70); Platelet Count 272 K/mm3 (150-450); RBC Distribution Width CV 12.5 % (11.6-14.6); RBC Distribution Width SD 41.6 fl (35.1-43.9); Red Blood Count 4.65 M/mm3 (4.6-6.2); White Blood Count 10.4 K/mm3 (4.4-11.0)
[2021-07-01 05:32] LABS: ALB/GLOB Ratio 0.7 RATIO (0.9-2.4); AST(SGOT) 32 U/L (15-37); Alanine Aminotransfer ALT/SGPT 74 U/L (16-61); Albumin, Serum 3.2 g/dL (3.2-5.0); Alkaline Phosphatase 92 U/L (45-117); Anion Gap 6 (5-15); BUN 16 mg/dL (7-18); BUN/Creat Ratio 14.8 RATIO (10-20); Calcium,Total 8.8 mg/dL (8.5-10.1); Chloride 104 mmol/L (98-107); Creatinine, Serum 1.08 mg/dL (0.70-1.30); EST Glomerular Filtration Rate 75 mL/min (>60); Est Glom Filt Rate - Afr Amer 91 mL/min (>60); Estimated Creatinine Clearance 78.86 ml/min; Globulin 4.6 g/dL (2.2-4.2); Glucose 114 mg/dL (74-106); Potassium 3.8 mmol/L (3.5-5.1); Protein, Total 7.8 g/dL (6.4-8.2); Sodium Level 136 mmol/L (136-145)
[2021-07-01 05:38] LABS: Lactic Acid 1.2 mmol/L (0.4-1.9)
--- NOTE | 2021-07-01 05:51 | PCM.HP.STD ---
HPI - General General Date of Admission: 07/01/21 Date of Service: 07/01/21 Chief Complaint: Recurrent fevers, dyspnea, cough HPI Narrative The patient is a 55 y/o M w/ PMHx: Obesity, Chew Tobacco use, recently admitted 06/25/2021 with Covid pneumonia with history of dyspnea and congestion as well as fever, chills, body aches, lethargy, cough and dyspnea starting approximately 1 week prior to that presentation with admission at that time and treatment with Decadron with currently 3 remaining doses and initiation of remdesivir loading with significant improvement and discharged on 06/26/2021 with per his report continued improvement until 06/30/2021 with significantly worsening dyspnea, cough, mildly productive noted to be mildly discolored and brown in nature with recurrent fevers and home oxygenation testing in the low 80s without improvement with rest prompting ED evaluation. Patient does note that he had felt well enough following his recent discharged even mow the lawn. Patient is not Covid vaccinated. Work-up in the ED included T 97.6, heart rate 78, BP 123/61, respiratory rate 16, 86% on room air however at rest improved to 90 to 94%, CBC with WC 10.4, hemoglobin 14.9, platelet 272 with increased immature granulocytes and left shift, CMP with glucose 114, lactic acid 1.2, AST/ALT 32/74 otherwise not marked appearing hepatic profile, chest x-ray with increased bilateral mid to lower lung patchy airspace opacities with worsening pneumonia appearance. In the ED patient ministered normal saline, azithromycin, Rocephin per ED physician. [facility] Medical History Arthritis Chewing tobacco use Segmental and somatic dysfunction of lumbar region Segmental and somatic dysfunction of pelvic region Segmental and somatic dysfunction of thoracic region Home Medications albuterol sulfate 2 puff INHALATION Q4H PRN PRN 30 Days #1 inh 06/25/21 [Rx Last Taken Unknown] aspirin [Aspirin Low Dose] 81 mg PO DAILY #30 tab 06/25/21 [Rx Last Taken Unknown] dexamethasone 6 mg PO DAILY #8 tab 06/25/21 [Rx Last Taken Unknown] Allergy/AdvReac Type Severity Reaction Status Date / Time No Known Allergies Allergy Verified 07/01/21 04:52 Family History (Updated 07/01/21 @ 06:[address] Madelyn Gaona MD) Mother Cancer Breast cancer. Father Diabetes COPD (chronic obstructive pulmonary disease) Surgical History S/P hernia repair S/P knee surgery Social History (Updated 07/01/21 @ 04:[address] Dallas Garg MD) household members: spouse housing: house Smoking Status: Never smoker Smokeless tobacco user: chewing tobacco alcohol intake: current alcohol intake frequency: a few times a week Alcohol type: beer and wine substance use type: does not use what type of physical activity do you participate in: walking frequency: 1-2 times per week ROS ROS Narrative Admission Review of Systems: CONSTITUTIONAL: No weight loss, + fever, chills, weakness or fatigue. HEENT: Eyes: No visual loss, blurred vision, double vision or yellow sclerae. Ears, Nose, Throat: No hearing loss, sneezing, congestion, runny nose or sore throat. SKIN: No rash or itching, lesions, wounds. CARDIOVASCULAR: No chest pain, chest pressure or chest discomfort, palpitations, edema, orthopnea, syncopal events. RESPIRATORY: + shortness of breath, cough with mildly productive sputum, No wheezing, hemoptysis. GASTROINTESTINAL: No anorexia, nausea, vomiting or diarrhea, abdominal pain, melena, BRBPR. GENITOURINARY: No dysuria, frequency, urgency or retention. NEUROLOGICAL: No headache, dizziness, syncope, paralysis, ataxia, numbness or tingling in the extremities, focal weakness, change in bowel or bladder control, seizure. MUSCULOSKELETAL: + muscle, back pain, joint pain or stiffness. HEMATOLOGIC: No anemia, bleeding or bruising. LYMPHATICS: No enlarged nodes. No history of splenectomy. PSYCHIATRIC: No history of depression or anxiety. ENDOCRINOLOGIC: No reports of sweating, cold or heat intolerance. No polyuria or polydipsia. ALLERGIES: No history of asthma, hives, eczema or rhinitis. Vital Signs Vital Signs Vital Signs: 07/01/21 04:48 07/01/21 04:51 07/01/21 04:53 Temperature 97.6 F L 97.6 F L Temperature Source Temporal Temporal Pulse Rate 74 74 Respiratory Rate 28 H 28 H Respiratory Effort Short of Breath Respiratory Pattern Tachypnea Blood Pressure 132/82 H 132/82 H Blood Pressure Mean 98 98 Pulse Ox 90 90 Oxygen Delivery Method Room Air Room Air Room Air 07/01/21 05:12 Temperature Temperature Source Pulse Rate 61 Respiratory Rate 18 Respiratory Effort Respiratory Pattern Blood Pressure Blood Pressure Mean Pulse Ox Oxygen Delivery Method Weight Weight: 266 lb 8.622 oz Body Mass Index (BMI) 38.2 Physical Exam Narrative Physical Examination: General: Awake, alert, oriented x 3 and cooperative, seated upright in the ED bed in no apparent distress, notes feeling improved since initial presentation. Skin: Normal color, normal turgor, no icterus, no cyanosis. HEENT: AT/NC, EOMI, PERRLA, mildly dry MM, no carotid bruits or JVD noted. Lungs: Diffusely diminished, greater bases, no evidence of any distress, no rales, ronchi or wheezing. Heart: Regular rate and rhythm; no gallop, rub audible. Abdomen: Soft, obese, NTTP, ND, normal BS, no obvious HSM. Extremities: No cyanosis, clubbing, or edema. Neurological: Patient awake, alert, oriented as noted, cognitive function intact; pupils equally reactive to light and accommodation, cranial nerves II-XII grossly normal, moving all 4 extremities, no focal deficits, strength moderately global decrease secondary to acute presentation. Psychiatric: Affect appears fatigued otherwise normal, no acute evidence of depressive or anxiety feelings. Results Lab / Micro Data Result Diagrams: 07/01/21 05:00 07/01/21 05:00 Labs: Laboratory Results - last 24 hr 07/01/21 05:00: WBC 10.4, RBC 4.65, Hgb 14.9, Hct 42.7, MCV 91.8, MCH 32.0, MCHC 34.9, RDW Std Deviation 41.6, RDW Coeff of Lee 12.5, Plt Count 272, MPV 9.8, Immature Gran % (Auto) 3.800 H, Neut % (Auto) 77.7 H, Lymph % (Auto) 12.5 L, [place] % (Auto) 3.0, Eos % (Auto) 2.6, Baso % (Auto) 0.4, Absolute Neuts (auto) 8.1 H, Absolute Lymphs (auto) 1.30, Nucleated RBC % 0 07/01/21 05:00: Lactic Acid 1.2 07/01/21 05:00: Sodium 136, Potassium 3.8, Chloride 104, Carbon Dioxide 26.0, Anion Gap 6, BUN 16, Creatinine 1.08, Estim Creat Clear Calc 78.86, Est GFR (MDRD) Af Amer 91, Est GFR (MDRD) Non-Af 75, BUN/Creatinine Ratio 14.8, Glucose 114 H, Calcium 8.8, Total Bilirubin 1.20 H, AST 32, ALT 74 H, Alkaline Phosphatase 92, Total Protein 7.8, Albumin 3.2, Globulin 4.6 H, Albumin/Globulin Ratio 0.7 L Radiology Impression Chest X-Ray 07/01/21 04:54 IMPRESSION: Increased bilateral mid to lower lung patchy airspace opacities concerning for infection. Radiographic follow-up recommended to ensure resolution. at 0537 Reported and signed by: James Valdez MD Electronically Signed: James Valdez MD at 5:35 EDT Tel , Service support , Assessment & Plan Assessment/Plan (1) Pneumonia due to COVID-19 virus: (2) Hypoxemia: PLAN: The patient is a 55 y/o M w/ PMHx: Obesity, Chew Tobacco use, recently admitted 06/25/2021 with Covid pneumonia, discharged on 06/26/2021 with per his report continued improvement until 06/30/2021 with significantly worsening dyspnea, cough, mildly productive noted to be mildly discolored and brown in nature with recurrent fevers and home oxygenation testing in the low 80s without improvement with rest prompting ED evaluation. 1. Acute Hypoxia secondary to Worsening Bilateral Pneumonia secondary to Acute Viral Syndrome, COVID-19, Questionable superimposed bacterial PNA: Will admit to the [facility] under COVID precautions, will maintain on oxygen with wean as tolerated to room air, PRN albuterol, HOB, IS parameters w/ pending sputum cultures, respiratory viral panel and urine antigens, will obtain D-dimer, procalcitonin, CRP, CPK, Ferritin, LDH, trop and BNP, continue supportive care including q 2 hour turning including prone given no prone bed availability and judicious hydration, continue decadron to completion. Will consult infectious disease. Patient was administered IV rocephin and azithromycin, will hold on further given dosing today and await ID input and work-up as noted including procalcitonin. If elevated would plan re-addition pending Dr. Almaraz evaluation. 2. Chew Tobacco Abuse: Encouraged cessation, NR if desired. 3. Obesity: Weight loss and lifestyle changes encouraged. 4. DVT prophylaxis: SCDs, Lovenox. 5. CODE status: Given COVID status, discussed CODE status at length including difference between FULL code, DNR-CCA and DNR-CC status. Following discussions about the differences in these status, requested Full Code status. Advanced Care Planning Face to Face Time: 16 minutes. Charges/Coding Visit Charges Inpatient E&M: 04532 Init Hosp L3 Procedures Hospitalists Procedures: 38993 Advncd Care Plan 30 Min
[2021-07-01] MEDS: Ceftriaxone 1 GM/50 ML BAG IV (06:00)
[2021-07-01 06:56] LABS: D-Dimer Quantitative (DVT/PE) 0.86 FEU/ug/m (0.27-0.49)
--- NOTE | 2021-07-01 07:06 | CT_ITS ---
STUDY: CTA CHEST REASON FOR EXAM: Male, 55 years old. Suspected PE. Worsening shortness of breath and hypoxia. Covid positive. RADIATION DOSAGE (If Supplied By Facility): CTDIvol = ( 12.66 ) mGy, DLP = ( 1074.96 ) mGycm TECHNIQUE: The examination was performed with the intravenous administration of IV 100mL Isovue-370. Post-processing of the angiographic images was performed, with multiplanar reformation and 3D reconstruction. Individualized dose optimization techniques were used for this CT. COMPARISON: Comparison is made with prior chest radiograph dated 07/01/2021 at 4:59 AM. FINDINGS: There are multiple small nonocclusive intra-arterial filling defects in the upper lobe right and left pulmonary arterial branches. Normal thoracic aorta and visualized great vessels. There is no demonstrated aortic dissection. Normal heart and pericardium. Normal mediastinum. Normal hilar regions. Normal visualized trachea and bronchi. The lungs are well expanded. There are diffuse bilateral alveolar infiltrates involving both lungs in a preferential peripheral distribution. This is worse in the lower lobes. Findings are incongruent Covid 19. Normal pleura. Normal chest wall structures. Normal osseous structures. Normal visualized upper abdomen. CT/CTA Chest W/WO Contrast IMPRESSION: Multiple small intraluminal filling defects in branches of the upper lobe pulmonary arteries in keeping with pulmonary emboli. Diffuse bilateral airspace disease in the preferential peripheral distribution suggestive of Covid pneumonitis. Electronically Signed: Octavio Ramos MD at 8:44 EDT , Service support ,
[2021-07-01 07:25] LABS: Ferritin 521 ng/mL (26-388); LDH 267 U/L (87-241); Phosphorus 2.4 mg/dL (2.5-4.9)
[2021-07-01 07:58] LABS: Procalcitonin 0.08 ng/mL (0.00-0.09)
[2021-07-01 08:01] LABS: BNP,B-Type NATRIURETIC PEPTIDE 23.6 pg/mL (0-100)
[2021-07-01] MEDS: 0.9% Normal Saline 1,000 ML 100 ML IV ×2 (08:32→20:36)
[2021-07-01] MEDS: Famotidine 20 MG Tablet PO ×2 (08:51→20:36)
[2021-07-01] MEDS: Aspirin E.C. 81 MG Tablet PO (08:51)
[2021-07-01] MEDS: dexAMETHasone 2 MG TABLET 6 MG PO (08:51)
[2021-07-01] MEDS: Enoxaparin 30 MG/0.3 ML Syringe SC (08:52)
--- NOTE | 2021-07-01 10:57 | CON.PCM.ID_ITS ---
Assessment & Plan Assessment/Plan (1) Pneumonia due to COVID-19 virus: PLAN: Covid, unvaccinated, sx started around 06/18. feeling fine at home. On dex. Now with PEs seen on CTA, recommend starting therapeutic an ticoag. Quarantine for 20 days from start of symptoms. Got remdesivir 06/24 and 06/25. Recommend vaccine in next month. Will follow, thank you (2) Pulmonary emboli: (3) Hypoxemia: HPI Consult Data Date of Consult: 07/01/21 HPI Narrative HPI Narrative: LYNDA GUTIERREZ, is a 55 M who presented with worsening cough, dyspnea, fever. Unvaccinated for covid. Developed congestion around 06/18, then progressive cough, dyspnea, aches, fever, fatigue. No change in taste/smell. No n/v/d. Came to ED 06/24, admitted, given dex and 2 doses of remdesivir, sent home. [place] much better for a few days, then sx again. Sputum is white, frothy. Came back to ED, admitted on dex after doses azithro/ceftriaxone. CT now shows PEs. Full ROS performed and neg except as noted above. [facility] Medical History (Updated 07/01/21 @ 10:[address] Francisco Almaraz MD) Arthritis Chewing tobacco use Segmental and somatic dysfunction of lumbar region Segmental and somatic dysfunction of pelvic region Segmental and somatic dysfunction of thoracic region Home Medications albuterol sulfate 2 puff INHALATION Q4H PRN PRN 30 Days #1 inh 06/25/21 [Rx Last Taken 07/01/21] aspirin [Aspirin Low Dose] 81 mg PO DAILY #30 tab 06/25/21 [Rx Last Taken 06/30/21] dexamethasone 6 mg PO DAILY #8 tab 06/25/21 [Rx Last Taken 06/30/21] Allergy/AdvReac Type Severity Reaction Status Date / Time No Known Allergies Allergy Verified 07/01/21 04:52 Family History (Updated 07/01/21 @ 06:[address] Madelyn Gaona MD) Mother Cancer Breast cancer. Father Diabetes COPD (chronic obstructive pulmonary disease) Surgical History S/P hernia repair S/P knee surgery Social History (Updated 07/01/21 @ 04:[address] Dallas Garg MD) household members: spouse housing: house Smoking Status: Never smoker Smokeless tobacco user: chewing tobacco alcohol intake: current alcohol intake frequency: a few times a week Alcohol type: beer and wine substance use type: does not use what type of physical activity do you participate in: walking frequency: 1-2 times per week Physical Exam Const alert, oriented x3 and no apparent distress General Appearance: cooperative Eyes PERRL and EOMs intact bilaterally Neck supple and No nodes Resp normal air movement and clear to auscultation bilaterally Cardio regular rate and regular rhythm GI normal to inspection, nondistended, normoactive bowel sounds Extremity no clubbing, cyanosis or edema Skin no rashes or lesions noted Neuro CN's II-XII intact bilaterally Lab / Micro Data Result Diagrams: 07/01/21 05:00 07/01/21 05:00 Labs: Laboratory Results - last 24 hr 07/01/21 04:30: Phosphorus 2.4 L, Ferritin 521 H, Lactate Dehydrogenase 267 H, C-React Prot Ext Range 98.90 H 07/01/21 04:30: B-Natriuretic Peptide 23.6 07/01/21 05:00: WBC 10.4, RBC 4.65, Hgb 14.9, Hct 42.7, MCV 91.8, MCH 32.0, MCHC 34.9, RDW Std Deviation 41.6, RDW Coeff of Lee 12.5, Plt Count 272, MPV 9.8, Immature Gran % (Auto) 3.800 H, Neut % (Auto) 77.7 H, Lymph % (Auto) 12.5 L, [place] % (Auto) 3.0, Eos % (Auto) 2.6, Baso % (Auto) 0.4, Absolute Neuts (auto) 8.1 H, Absolute Lymphs (auto) 1.30, Nucleated RBC % 0 07/01/21 05:00: Lactic Acid 1.2 07/01/21 05:00: Sodium 136, Potassium 3.8, Chloride 104, Carbon Dioxide 26.0, Anion Gap 6, BUN 16, Creatinine 1.08, Estim Creat Clear Calc 78.86, Est GFR (MDRD) Af Amer 91, Est GFR (MDRD) Non-Af 75, BUN/Creatinine Ratio 14.8, Glucose 114 H, Calcium 8.8, Total Bilirubin 1.20 H, AST 32, ALT 74 H, Alkaline Phosphatase 92, Total Protein 7.8, Albumin 3.2, Globulin 4.6 H, Albumin/Globulin Ratio 0.7 L 07/01/21 06:20: D-Dimer Quant (PE/DVT) 0.86 H* 07/01/21 06:20: Procalcitonin 0.08 Micro: Microbiology 07/01/21 07:26 Mucosa - Nasopharyngeal Respiratory Panel (PCR) - Final 07/01/21 Unknown Urine, Clean Catch Legionella Antigen - Final 07/01/21 Unknown Urine, Clean Catch Streptococcus pneumoniae Antigen (M - Final Radiology Impression Chest X-Ray 07/01/21 04:54 IMPRESSION: Increased bilateral mid to lower lung patchy airspace opacities concerning for infection. Radiographic follow-up recommended to ensure resolution. at 0537 Reported and signed by: James Valdez MD Electronically Signed: James Valdez MD at 5:35 EDT Tel , Service support , Chest CTA 07/01/21 07:06 IMPRESSION: Multiple small intraluminal filling defects in branches of the upper lobe pulmonary arteries in keeping with pulmonary emboli. Diffuse bilateral airspace disease in the preferential peripheral distribution suggestive of Covid pneumonitis. Electronically Signed: Octavio Ramos MD at 8:44 EDT , Service support ,
--- NOTE | 2021-07-01 11:03 | CASEMGMT ---
Readmission chart review: Pt came into the ED 06/24/21 with fever, chills, body aches for several days and was admitted to [facility], dx'd with COVID pna. Pt was on 2Lnc over night but did not qualify for home oxygen, pt was discharged the next day. See assessment completed by Josseline EBRGERON CM 06/25/21. Pt returned to [facility] ED on 07/01/21 for SOB and O2 sat of 86% on room air. Pt admitted to PCU and is currently on 2L nc at rest. Pt does have CT chest that shows PE's and pt to be placed on Eliquis per Dr. Velez. CM to follow for home oxygen need and any further discharge planning/needs. Pt is still within previous quarantine period. Nick BERGERON CM
--- NOTE | 2021-07-01 11:41 | NURSING ---
updated marli on phone-pt stable, o2 needs are still at 2l
--- NOTE | 2021-07-01 14:02 | PN.HOSP_ITS ---
Hospitalist Note Mr. Oneal is a 55-year-old male who presented to the emergency department early this morning with worsening shortness of breath. He was recently diagnosed with Covid pneumonia but was able to be discharged on 06/25/2021. Date of diagnosis was 06/25/2021. He was discharged with albuterol inhaler, aspirin and Decadron. He developed fevers on Monday and had been complaining of increased shortness of breath and diaphoresis. He had been suffering from intermittent fevers ever since that point time. On admission his CBC was unremarkable. His D-dimer was mildly elevated at 0.86. His CMP showed a mildly elevated ALT at 74 with a normal AST, and elevated bilirubin at 1.2, and elevated ferritin at 521, and an elevated LDH. His procalcitonin was within normal limits. He was admitted to the medical floor and initiated on Decadron and remdesivir. A CTA of his chest was performed secondary to his elevated D- dimer. This showed multiple small pulmonary emboli and diffuse bilateral airspace disease. Eliquis 10 mg twice daily was initiated and this will be continued for 7 days and then transition to 5 mg p.o. twice daily. I would recommend a treatment period for 3 to 6 months. Patient is currently on 2 L nasal cannula with an SPO2 of 93 to 95%.
[2021-07-01] MEDS: APIXABAN 5 MG TABLET 10 MG PO (20:36)
[2021-07-02] VITALS (7 sets, daily range): BP systolic 135–157; BP diastolic 73–84; PULSE 44–56; RESP 16–20; TEMP 36.5–36.8; O2SAT 87–95
--- NOTE | 2021-07-02 03:42 | PCS.PANDOC ---
PANDEMIC DOCUMENTATION INITIATED: Date: 07/01/2021 Time: 51
[2021-07-02 07:40] LABS: Absolute Lymphocyte Count 1.34 X10^3/uL (0.83-4.51); Absolute Neutrophil Count 7.6 X10^3/uL (2.0-7.7); Basophil# 0.03 X10^3/uL; Basophil% 0.3 % (0-1); Hematocrit 42.9 % (40-54); Hemoglobin 14.5 g/dL (13.0-16.5); Lymphocyte # 1.34 X10^3/ul (0.83-4.51); Lymphocyte % 13.6 % (19-41); Mean Corp Hgb Conc 33.8 g/dL (32-36); Mean Corpuscular Volume 94.7 fL (80-94); Mean Platelet Vol. 10.2 fl (6.2-12.0); Monocyte% 4.1 % (0-10); NRBC Flagged by Analyzer 0 % (0-5); Neutrophil # 7.61 X10^3/uL (2.7-7.7); Neutrophil % 77.2 % (47-70); POSITIVE MORPHOLOGY YES; Platelet Count 289 K/mm3 (150-450); RBC Distribution Width CV 12.9 % (11.6-14.6); RBC Distribution Width SD 45.1 fl (35.1-43.9); Red Blood Count 4.53 M/mm3 (4.6-6.2); White Blood Count 9.9 K/mm3 (4.4-11.0)
[2021-07-02 07:44] LABS: Differential Indicated SCAN CRITERIA MET
[2021-07-02 08:08] LABS: ALB/GLOB Ratio 0.6 RATIO (0.9-2.4); AST(SGOT) 40 U/L (15-37); Alanine Aminotransfer ALT/SGPT 79 U/L (16-61); Albumin, Serum 2.9 g/dL (3.2-5.0); Alkaline Phosphatase 84 U/L (45-117); Anion Gap 7 (5-15); BUN 21 mg/dL (7-18); BUN/Creat Ratio 24.8 RATIO (10-20); Calcium,Total 8.7 mg/dL (8.5-10.1); Chloride 106 mmol/L (98-107); Creatinine, Serum 0.85 mg/dL (0.70-1.30); EST Glomerular Filtration Rate 99 mL/min (>60); Est Glom Filt Rate - Afr Amer 120 mL/min (>60); Globulin 4.5 g/dL (2.2-4.2); Glucose 112 mg/dL (74-106); Protein, Total 7.4 g/dL (6.4-8.2); Sodium Level 138 mmol/L (136-145)
[2021-07-02] MEDS: dexAMETHasone 2 MG TABLET 6 MG PO (10:27)
[2021-07-02] MEDS: Famotidine 20 MG Tablet PO (10:28)
[2021-07-02] MEDS: Aspirin E.C. 81 MG Tablet PO (10:28)
[2021-07-02] MEDS: APIXABAN 5 MG TABLET 10 MG PO (10:28)
--- NOTE | 2021-07-02 10:54 | CASEMGMT ---
Addendum entered by Vandana Eli 07/02/21 11:54: Pt also to be sent home on Eliquis and med to be e-scribed to [facility] retail pharmacy. Call to Noah in pharmacy to notify of script and to use 30 day free trial card, voices understanding. Nick BERGERON CM Addendum entered by Vandana Eli 07/02/21 11:52: Referral faxed to [facility] and call to [facility] to notify of referral and pt discharge today. Pt voices no further questions/concerns/needs for discharge at this time. Nick BERGERON CM Original Note: Pt qualifies for 3L nc home oxygen with exertion and pt would like this RN SOULEYMANE to call , Carolyn, for DME preference. Call to , Carolyn, and she chooses [employer]. updated on Eliquis script and coupon card to be applied, voices understanding. voices no further questions/concerns/needs. Nick BERGERON CM
--- NOTE | 2021-07-02 12:30 | PCM.DC.SUM ---
Providers Date of Admission: 07/01/21 Primary Care Physician: Dr. Tate Garcia MD Consultations 07/01/21 06:52 Consult: Infectious Disease Routine Consulting Provider: Francisco Almaraz Reason for Consult: COVID PNA, worsening, ? superimposed EMERGENT Consult: No MD Notified: Yes Date Notified: 07/01/21 Time Notified: 08:01 Method of Notification: Answering Service Reason For Visit: COVID PNA, POSSIBLE SUPERIMPOSED BACTERIAL PNA, Diagnosis Discharge Diagnosis (1) Pneumonia due to COVID-19 virus: Status: Acute Code(s): U07.1 - COVID-19; J12.82 - Pneumonia due to coronavirus disease 2019 (2) Pulmonary emboli: Status: Acute Code(s): I26.99 - Other pulmonary embolism without acute cor pulmonale (3) Hypoxemia: Status: Acute Code(s): R09.02 - Hypoxemia Medications at Discharge Home Medications albuterol sulfate 2 puff INHALATION Q4H PRN PRN 30 Days #1 inh 06/25/21 aspirin [Aspirin Low Dose] 81 mg PO DAILY #30 tab 06/25/21 dexamethasone 6 mg PO DAILY #8 tab 06/25/21 apixaban [Eliquis] 5 mg PO BID #60 tab 07/02/21 apixaban [Eliquis] 10 mg PO BID #24 tab 07/02/21 Hospital Course Operations None Procedures None Summary of Care Provided Minutes Spent on Discharge: 38 Hospital Course: Mr. Oneal is a 55-year-old white male who presented to the emergency department at [facility] on 07/01/2021 for recurrent fevers, dyspnea, and cough. He had a recent hospitalization with a 12-hour stay on 06/25/2021 with Covid. He was diagnosed on 06/18/2021. At that time he was treated with Decadron and had 3 remaining doses on admission. He noted improvement until 06/30/2021 when he developed worsening dyspnea, cough, mildly productive of discolored brown sputum recurrent fevers and his home oxygen levels were noted to be in the low 80s without improvement at rest. His chest x-ray showed increased bilateral mid and lower lung patchy airspace opacities consistent with worsening Covid pneumonia as expected. In the emergency department he received azithromycin and Rocephin. He has been afebrile since his arrival and his white count is not elevated. His D-dimer was noted to be elevated and a CTA of his chest was performed and showed multiple small intraluminal filling defects in branches of the upper lobe pulmonary arteries consistent with pulmonary emboli and diffuse bilateral airspace disease. He was started on Eliquis 10 mg twice daily and will continue this for 7 days and then transition to 5 mg twice daily for 3 to 6 months. Strep pneumo and urine Legionella antigens were negative. His oxygenation status was stable on 2 L nasal cannula and we were able to wean him to room air at rest but he did require 3 L of oxygen with ambulation to maintain oxygen saturation. He was discharged home and instructed to complete his dexamethasone dosing. He was given a prescription for Eliquis 10 mg twice daily for another 6 days as well as a prescription for 5 mg twice daily with 2 refills for total of 3 months. He was also referred to follow-up with pulmonary medicine as an outpatient. He will need to continue quarantine until 07/08/2021 after which she has been advised to get the vaccination for coronavirus. He can follow-up with his PCP and pulmonary doctor after that time as well. Discharge diagnoses: Acute pulmonary embolism-bilateral Acute hypoxic respiratory insufficiency COVID-19 pneumonia Obesity Nicotine abuse-chewing tobacco OA Physical Exam Const alert, oriented x3 and no apparent distress Constitutional Narrative: Obese middle-aged white male sitting up in bed, currently talking on a cell phone, appears comfortable, nontoxic, currently on 2 L nasal cannula General Appearance: cooperative, comfortable, well kempt and well developed Exam Limitations: no limitations HEENT normocephalic, head/scalp atraumatic, hearing grossly normal bilaterally and moist oral mucous membranes Eyes PERRL and EOMs intact bilaterally Neck supple Neck Narrative: Trachea midline, no thyroid enlargement noted Resp normal respiratory effort, no retractions, no use of accessory muscles and clear to auscultation bilaterally Auscultation: Negative for crackles, rales, rhonchi or wheezes Cardio regular rate, regular rhythm, S1 normal heart sound, S2 normal heart sound, no murmurs, no rub, no gallops, no clicks and no JVD GI normal to inspection, nondistended, normoactive bowel sounds, soft to palpation, non-tender and non-distended Extremity no clubbing, cyanosis or edema Skin no rashes or lesions noted, no wounds, skin turgor normal and no jaundice Neuro oriented x3, CN's II-XII intact bilaterally and moves all extremities Sensorium / Orientation: awake, alert, oriented to person, oriented to place and oriented to time Speech: speech normal Psych affect normal Weight / BMI Weight Weight: 113.9 kg Body Mass Index (BMI) 36.0 ABG / Lab / Microbiology Data Result Diagrams: 07/02/21 06:45 07/02/21 06:45 Laboratory: Laboratory Results - last 24 hr 07/02/21 06:45: WBC 9.9, RBC 4.53 L, Hgb 14.5, Hct 42.9, MCV 94.7 H, MCH 32.0, MCHC 33.8, RDW Std Deviation 45.1 H, RDW Coeff of Lee 12.9, Plt Count 289, MPV 10.2, Immature Gran % (Auto) 4.800 H, Neut % (Auto) 77.2 H, Lymph % (Auto) 13.6 L, [place] % (Auto) 4.1, Eos % (Auto) 0.0, Baso % (Auto) 0.3, Absolute Neuts (auto) 7.6, Absolute Lymphs (auto) 1.34, Nucleated RBC % 0 07/02/21 06:45: Sodium 138, Potassium 4.0, Chloride 106, Carbon Dioxide 25.0, Anion Gap 7, BUN 21 H, Creatinine 0.85, Estim Creat Clear Calc 100.20, Est GFR (MDRD) Af Amer 120, Est GFR (MDRD) Non-Af 99, BUN/Creatinine Ratio 24.8 H, Glucose 112 H, Calcium 8.7, Total Bilirubin 0.80, AST 40 H, ALT 79 H, Alkaline Phosphatase 84, Total Protein 7.4, Albumin 2.9 L, Globulin 4.5 H, Albumin/Globulin Ratio 0.6 L Microbiology: Microbiology 07/01/21 09:00 Sputum, Expectorated/Coughed Gram Stain - Final 07/01/21 09:00 Sputum, Expectorated/Coughed Respiratory Culture - Preliminary Appears to be normal respiratory johanny. Further studies to follow. 07/01/21 07:26 Mucosa - Nasopharyngeal Respiratory Panel (PCR) - Final 07/01/21 Unknown Urine, Clean Catch Legionella Antigen - Final 07/01/21 Unknown Urine, Clean Catch Streptococcus pneumoniae Antigen (M - Final D/C Instructions Discharge Diet: No restrictions Meaningful Use Info Meaningful Use Diagnoses (Choose all that apply): VTE VTE Anticoag overlap given w/in hospital stay or rx'd at dc?: No Pt receive overlap for 5 days?: No Reason overlap not ordered, prescribed, or given for 5 days: Treatment Not Indicated Discharge Plan Admission Admit Date/Time: 07/01/21 05:58 Primary Reason for Your Visit: COVID-19/Pulmonary Embolus Attending Provider: Beatrice Velez Primary Care Provider: Tate Garcia Consulting Providers: Francisco Almaraz Discharge Orders/Prescriptions Prescriptions: New Eliquis 5 mg Tablet 10 mg PO BID Qty: 24 RF: 0 Eliquis 5 mg Tablet 5 mg PO BID Qty: 60 RF: 1 Continued albuterol sulfate 90 mcg/actuation Hfa Aerosol Inhaler 2 puff inhalation Q4H PRN PRN (Reason: sob/wheezing) 30 Days Qty: 1 RF: 0 dexamethasone 6 mg tablet 6 mg PO DAILY Qty: 8 RF: 0 aspirin [Aspirin Low Dose] 81 mg tablet,delayed release (DR/EC) 81 mg PO DAILY Qty: 30 RF: 0 Referrals / Follow Up: Tanner Zhu MD [STAFF PHYSICIAN] - Within 1 Month (Covid and pulmonary emboli) Tate Garcia MD [Primary Care Provider] - Within 2 Weeks Disposition Disposition (needs filled in before D/C Order can be placed): Home, Self Care Charges/Coding Visit Charges Inpatient E&M: 06438 Disch Hosp
--- NOTE | 2021-07-02 15:14 | PHA.DC.MR ---
Pharmacy Service has performed discharge medication reconciliation for this patient. The patient's discharge medication list was reviewed for discrepancies and discrepancies were resolved. Patient discharged before I was able to attempt to call to insurance counselor. Home Medications albuterol sulfate 2 puff INHALATION Q4H PRN PRN 30 Days #1 inh 06/25/21 aspirin [Aspirin Low Dose] 81 mg PO DAILY #30 tab 06/25/21 dexamethasone 6 mg PO DAILY #8 tab 06/25/21 apixaban [Eliquis] 5 mg PO BID #60 tab 07/02/21 apixaban [Eliquis] 10 mg PO BID #24 tab 07/02/21
--- NOTE | 2021-07-05 14:18 | CASEMGMT ---
ELYSSA COMER Discharge Follow-Up Phone Call. Anny: Alecia Strata: 1 Discharge Date: 07/02/21 Adm Dx: COVID PNA Call to pt to inquire about how he has been doing since being discharged from the hospital. Pt states he is doing fine and breathing is doing good. He has been wearing the oxygen w/exertion and pulse ox has been staying in mid 90's most of the time. He got his rx's from [facility] prior to discharged w/out difficulty, has been taking his medications as prescribed, and denies having any questions about the medication. He has an appt scheduled w/Dr Garcia, PCP, sometime next week, I think. He has not scheduled an appt w/Dr Zhu yet, but plans to do so. He denies having any questions or concerns. He thanked ELYSSA COMER for calling. Sharmaine LEMOS RN, CM
== END 2021-07-02 15:07 | disposition home or self-care (01) | DRG 177 ==
LOC: ED 05:23 → PCU 06:52
PROVIDERS: Admitting Provider Family Medicine; Emergency Provider Emergency Medicine; PCP Family Medicine; Visit Provider Internal Medicine
DX: U07.1 COVID-19 (principal); J12.82 Pneumonia due to coronavirus disease 2019; I26.99 Other pulmonary embolism without acute cor pulmonale; R09.02 Hypoxemia; M19.90 Unspecified osteoarthritis, unspecified site; M99.02 Segmental and somatic dysfunction of thoracic region; M99.03 Segmental and somatic dysfunction of lumbar region; M99.05 Segmental and somatic dysfunction of pelvic region; F17.220 Nicotine dependence, chewing tobacco, uncomplicated; E66.9 Obesity, unspecified; Z68.38 Body mass index [BMI] 38.0-38.9, adult; Z79.82 Long term (current) use of aspirin; R06.89 Other abnormalities of breathing
CPT/HCPCS: 36415; 71045; 71275; 80053; 82728; 83605; 83615; 83880; 84100; 84145; 85025; 85379; 86140; 87070; 87205; 87449; 87633; 93005; 94640; 99284; 99406; J7030; J7050; Q9967; A4216

== ENCOUNTER 2021-12-22 09:01 | Outpatient (CLI) | payer OTHER, SELFPAY ==
--- NOTE | 2021-12-22 09:10 | RAD_ITS ---
STUDY: X-RAY - LUMBAR SPINE REASON FOR EXAM: Male, 56 years old. LOW BACK PAIN TECHNIQUE: 3 view(s) of the lumbar spine were obtained. COMPARISON: None FINDINGS: There is straightening of the normal lumbar lordosis. There is no substantial scoliosis. There is a normal alignment of the vertebrae. There is multilevel endplate spondylosis of the lumbar vertebrae. There is multi-level degenerative disc disease with multi-level disc space narrowing. The soft tissue structures are unremarkable. RAD/Lumbar Spine 2 or 3 Views IMPRESSION: Straightening of the physiologic lordosis which can BE associated muscle spasm or pain. There is multilevel degenerative disc disease, without acute loss of height or alignment. Electronically Signed: Renuka Clarke MD at 4:18 EST Reading Location ID and State: [facility] / [place] Tel , Service support ,
== END 2021-12-22 23:59 | disposition home or self-care (01) ==
LOC: RAD 09:05
PROVIDERS: PCP Family Medicine; Referring Provider Family Medicine; Visit Provider Family Medicine
DX: M54.50 Low back pain, unspecified (principal)
CPT/HCPCS: 72100

== ENCOUNTER → 2024-12-24 | Outpatient (CLI) | payer OTHER, SELFPAY ==
--- NOTE | 2024-12-24 08:00 | CYST_PTH ---
PATIENT: LYNDA GUTIERREZ LOC: [facility] U#:[id number] AGE/SX: 59/M ROOM: RE12/24/[address]: Dr. Gustabo Hughes MD : 1965 BED: DIS: 12/24/2024 SPEC #: [id number] RECD: 12/24/24 10:13 STATUS: LAVERNE REChichi #: [id number] RENY: 12/24/24 08:[address]: Gustabo Hughes DEPT: SURGICAL PATHOLOGY RECD BY: Emi Pineda ENTERED: 12/24/24 12:11 SP TYPE: Cyst OTHR DR: Dr. Tate Garcia MD Tissues: CYST Procedures: Surgery Specimen Level III HEADER OPERATION: Excision of right posterior neck cyst PRE-OP DIAGNOSIS: Right posterior neck cyst TISSUE SUBMITTED: Neck cyst MICROSCOPIC DIAGNOSIS Neck cyst, excision: Fragments of fibroconnective tissue with chronic inflammation and histiocytic reaction. See comment. SJ.mr 12/25/2024 COMMENT The finding may represent ruptured inflamed benign cyst. Clinical correlation and appropriate follow up are necessary. MICROSCOPIC DESCRIPTION Slides are reviewed. GROSS DESCRIPTION Received in fixative is one container labeled with the patient's name and designated Right posterior neck cyst. The specimen consists of two fragments of reddish-bates tissue measuring 1.1 x 0.5 x 0.3cm and 0.8 x 0.7 x 0.4cm. Submitted together totally in one cassette. 12/24/2024 TC:5 CPT:84429
== END | disposition home or self-care (01) ==
LOC: LABSPEC 10:42
PROVIDERS: PCP Family Medicine; Referring Provider Surgery; Visit Provider Surgery
DX: R22.1 Localized swelling, mass and lump, neck (principal)
CPT/HCPCS: 88304